=== PATIENT | male | born 1970 | race African-American/Black ===

== ENCOUNTER 2022-05-03 16:05 | Emergency (ER) | payer SELFPAY ==
[~2022-05-03] VITALS: Ht 180.3 cm; Wt 83.0 kg
[2022-05-03 16:09] VITALS: BP 137/94
[2022-05-03 16:38] LABS: COVID AG,FIA SOURCE NASAL SWAB
== END 2022-05-03 17:32 | disposition home or self-care (01) ==
LOC: EMS 16:10
DX: Z01.84 Encounter for antibody response examination (principal); Z20.822 Contact with and (suspected) exposure to COVID-19
CPT/HCPCS: 99283